=== PATIENT | female | born 2000 | race Caucasian/White ===

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

== ENCOUNTER 2019-03-19 14:27 | Emergency (ER) | payer OTHER ==
[~2019-03-19] VITALS: Ht 172.7 cm; Wt 68.2 kg
[2019-03-19 14:39] VITALS: BP 131/87; TEMP 98
[2019-03-19] MEDS ORDERED: PREDNISONE20 MG PO (16:03)
[2019-03-19 16:04] VITALS: PULSE 116
== END 2019-03-19 16:04 | disposition home or self-care (01) ==
LOC: COL.ER 14:27
DX: J98.01 Acute bronchospasm (principal); F17.210 Nicotine dependence, cigarettes, uncomplicated

== ENCOUNTER 2020-02-17 16:46 | Emergency (ER) | payer OTHER ==
[~2020-02-17] VITALS: Ht 172.7 cm; Wt 68.2 kg
[~2020-02-17 16:46] MED LIST changes: +PREDNISONE20 MG PO
[2020-02-17 16:49] VITALS: BP 136/87; PULSE 94; TEMP 99.2
[2020-02-17] MEDS ORDERED: SINGULAIR 110 MG/TAB PO (16:58)
[2020-02-17] MEDS ORDERED: DOXYCYCLINE 10100 MG PO (17:15)
== END 2020-02-17 17:26 | disposition home or self-care (01) ==
LOC: COL.ER 16:46
DX: L73.9 Follicular disorder, unspecified (principal); S90.562A Insect bite (nonvenomous), left ankle, initial encounter; S30.861A Insect bite (nonvenomous) of abdominal wall, initial encounter; L08.9 Local infection of the skin and subcutaneous tissue, unspecified; F17.290 Nicotine dependence, other tobacco product, uncomplicated; W57.XXXA Bitten or stung by nonvenomous insect and other nonvenomous arthropods, initial encounter

== ENCOUNTER 2020-03-22 13:07 | Emergency (ER) | payer OTHER ==
[~2020-03-22] VITALS: Ht 172.7 cm; Wt 68.2 kg
[~2020-03-22 13:07] MED LIST changes: +DOXYCYCLINE 10100 MG PO; +SINGULAIR 110 MG/TAB PO
[2020-03-22 13:13] VITALS: BP 125/79; TEMP 98.5
[2020-03-22] MEDS ORDERED: ZOVIRAX400 MG PO (14:30)
[2020-03-22 14:49] VITALS: PULSE 88
== END 2020-03-22 14:50 | disposition home or self-care (01) ==
LOC: COL.ER 13:07
DX: L51.9 Erythema multiforme, unspecified (principal); F17.290 Nicotine dependence, other tobacco product, uncomplicated